=== PATIENT | female | born 1965 | race Caucasian/White ===

== ENCOUNTER 2016-05-24 08:15 | Emergency (ER) ==
[2016-05-24 08:25] VITALS: BP 140/91; TEMP 98; BMI 35.9
[2016-05-24] MEDS ORDERED: BOOSTRIX IM ONE (08:39)
--- NOTE | 2016-05-24 08:39 | ED.PDOC ---
General ED Provider: Dr. PETE LLANOS JR Chief Complaint: Hand Pain/Injury Stated Complaint: states yesterday was outdoors --dog(black lab) pulled her to the ground--rt forefinger was painful around nailbed--states woke up this am with finger throbbing--has redness to cuticle and end of finger-she punctured it and had pus from it[End]complains of throbbing in to axilla(along arm) without redness states feels a gland in axilla "I really need something for the pain "98.0 68 20 97% 140/91 610 rt finger injury[End]states pain radiates into forearm[End] Time Seen by Physician: 08:39 Mode of Arrival: Walk-In Information Source: Patient Exam Limitations: No limitations [facility] Nursing and Triage Documentation Reviewed and Agree: No Review of Systems - Review Of Systems Constitutional: Reports: Malaise Eyes: Reports: No symptoms Ears, Nose, Mouth, Throat: Reports: No symptoms Respiratory: Reports: No symptoms Cardiac: Reports: No symptoms GI: Reports: No symptoms : Reports: No symptoms Musculoskeletal: Reports: Joint pain (right first finger), Joint swelling, Other Skin: Reports: Lesions, Lumps (note deformity of fourth finger(I got that cut off when I was a baby)) Neurological: Reports: Anxiety, Headache Endocrine: Reports: No symptoms Hematologic/Lymphatic: Reports: No symptoms All Other Systems: Other Past Medical History - Past Medical History Endocrine: Reports: Other Cardiovascular: Reports: None Respiratory: Reports: None Hematological: Reports: None Gastrointestinal: Reports: Other Genitourinary: Reports: None Neuro/Psych: Reports: None Musculoskeletal: Reports: None Cancer: Reports: None Last Menstrual Period: hysterectomy Other Pertinent Past Medical History: hypoglycemia--ibs hysterectomy - Surgical History General Surgical History: Reports: Hysterectomy - Family History Family History: Reports: Unknown - Social History Smoking Status: Current some day smoker Hx Substance Use: No Alcohol Screening: None - Immunizations Tetanus Shot up to Date: No Physical Exam - Physical Exam Appearance: Well-appearing Pain Distress: Mild Neck: Supple Respiratory: Airway patent Cardiovascular: RRR Skin: Warm, Dry (note lesion right index finger, healed abrasions times three, tender radial nailfold no discharge ) Neurological: Sensation intact, Motor intact, Reflexes intact, Cranial nerves intact, Alert, Oriented Psychiatric: Anxious Critical Care Note - Critical Care Note Total Time (mins): 0 Course - Course Orders, Labs, Meds: Orders Category Date Time Status Diphth,Pertuss(Acell),Tet Vac [Boostrix] MEDS 05/24/16 08:39 Discontinued 0.5 ml IM .ONCE ONE Medications Discontinued Medications Generic Name Dose Route Start Last Admin Trade Name Freq PRN Reason Stop Dose Admin Diphtheria/Pertussis/Tetanus Vacc 0.5 ml 05/24/16 08:39 Boostrix IM 05/24/16 08:40 .ONCE ONE Vital Signs: Temp Pulse Resp BP Pulse Ox 05/24/16 08:16 98 F 68 20 140/91 H 97 Departure - Departure Time of Disposition: 08:53 Disposition: HOME SELF-CARE Discharge Problem: Felon of finger of right hand Instructions: Cellulitis (ED) Condition: Good Pt referred to PMD for follow-up: Yes Additional Instructions: may follow with PMD or may follow with [facility] Please call your Family Physician as soon as possible to schedule a follow-up appointment. antibiotic for infection Naprosyn for pain elevate hand 2 hours twice a day(above level of heart) warm soaks 10 minutes three to five times a day recheck one week sooner if not resolved Prescriptions: Naproxen [Naprosyn] 500 mg PO Q12HR PRN #30 tablet PRN Reason: PAIN Clindamycin HCl 300 mg PO QID #40 capsule Allergies/Adverse Reactions: Allergies Penicillins Allergy (Severe, Verified 05/24/16 08:29) Hives Patient notified to buy medical alert necklace hydrocodone [From Vicodin] Adverse Reaction (Verified 05/24/16 08:29) contrast dyee Allergy (Severe, Uncoded 05/02/16 15:39) Perspiring, problems breathing Home Medications: Ambulatory Orders Ibuprofen 800 mg PO PRN 05/02/16 Clindamycin HCl 300 mg PO QID #40 capsule 05/24/16 Naproxen [Naprosyn] 500 mg PO Q12HR PRN #30 tablet 05/24/16
== END 2016-05-24 09:17 | disposition home or self-care (01) ==
LOC: ED 08:15
DX: L03.011 Cellulitis of right finger (principal); S69.81XA Other specified injuries of right wrist, hand and finger(s), initial encounter; W54.0XXA Bitten by dog, initial encounter
CPT/HCPCS: 90471; 99282

== ENCOUNTER 2016-05-27 15:53 | Outpatient (CLI) ==
--- NOTE | 2016-05-27 17:07 | DI ---
Exam: Lumbar spine five views complete History: Low back pain Findings: Full length AP, lateral, both oblique views as well as a spot lateral view of the lumbosa cral angle were obtained. There is a large amount of gas and fecal material which obscures detail o n the AP and both oblique projections in particular. There appear to be five non-rib bearing, non s acralized lumbar vertebrae. Alignment appeared satisfactory in each projection. Minimal amount of multilevel endplate spurring noted. Heights of the lumbar vertebrae and associated disc spaces thou ght to be adequately maintained. Impression: Minimal endplate spurring noted without evidence of fracture, malalignment nor signific ant lumbar spine compression deformity.
--- NOTE | 2016-05-27 17:08 | DI ---
Exam: Left ribs four views History: Thoracic spine pain Findings: Full length AP and oblique views of the left ribs with spot AP and oblique views of the l eft lower ribs obtained and shows no evidence of lucent line concerning for a recent fracture. Ther e is no evidence of callus formation to suggest an actively healing fracture. No evidence of pathol ogic bony production or destruction is identified. Impression: No evidence of recent or early healing left-sided rib fracture. It is of note the elev enth and twelfth ribs are somewhat obscured by the amount of gas seen within the colon within the le ft upper quadrant region.
== END 2016-05-27 15:54 | disposition home or self-care (01) ==
LOC: RAD 15:53
PROVIDERS: ATTEND Nurse Practitioner Family
DX: M54.6 Pain in thoracic spine (principal); M54.5 Low back pain

== ENCOUNTER 2016-07-11 16:28 | Outpatient (CLI) ==
[2016-07-11 17:39] LABS: FLU INTERNAL QC INTERNAL QC VALID; RAPID FLU A NEGATIVE (NEGATIVE); RAPID FLU B NEGATIVE (NEGATIVE)
== END 2016-07-11 16:29 | disposition home or self-care (01) ==
LOC: LAB 16:28
PROVIDERS: ATTEND Nurse Practitioner Family
DX: J01.90 Acute sinusitis, unspecified (principal); J03.90 Acute tonsillitis, unspecified
CPT/HCPCS: 87651; 87804; 87880

== ENCOUNTER 2016-07-19 16:02 | Outpatient (CLI) ==
[2016-07-19 16:50] LABS: BASOPHILS # (AUTO) 0.1 K/uL (0-0.2); BASOPHILS % (AUTO) 0.7 % (0.0-3.0); EOSINOPHILS # (AUTO) 0.2 K/ul (0.0-0.7); EOSINOPHILS % (AUTO) 2.4 % (0.0-7.0); HEMATOCRIT 41.6 % (37.0-47.0); HEMOGLOBIN 14.1 g/dl (12.0-16.0); IMMATURE GRANULOCYTE % (AUTO) 0.3 % (0.0-5.0); LYMPHOCYTES # (AUTO) 1.9 K/uL (0.60-3.4); LYMPHOCYTES % (AUTO) 25.7 (10.0-50.0); MEAN CORPUSCULAR HEMOGLOBIN 30.1 pg (27.0-31.0); MEAN CORPUSCULAR HGB CONC 33.9 (31.8-35.4); MEAN CORPUSCULAR VOLUME 88.9 fl (81.0-99.0); MONOCYTES # (AUTO) 0.4 K/uL (0.4-2.0); MONOCYTES % (AUTO) 5.6 (0-10); NEUTROPHILS # (AUTO) 4.8 K/ul (2.0-6.9); NEUTROPHILS % (AUTO) 65.3; PLATELET COUNT 228 10^3/uL (140-440); RED BLOOD COUNT 4.68 10^6/ul (4.20-5.40); WHITE BLOOD COUNT 7.36 K/ul (4.6-10.2)
[2016-07-19 17:09] LABS: ALBUMIN 3.7 g/dL (3.4-5.0); ALBUMIN/GLOBULIN RATIO 0.97; ANION GAP 13.3; BILIRUBIN,TOTAL 0.25 mg/dL (0.00-1.20); BUN/CREATININE RATIO 17.04; CALCIUM 9.3 mg/dL (8.2-10.2); CHOL/HDL RATIO 4.5 (4.5-5.5); CREATININE 0.88 mg/dL (0.60-1.30); POTASSIUM 3.3 mmol/L (3.5-5.10); TOTAL PROTEIN 7.5 g/dL (6.4-8.2)
== END 2016-07-19 16:03 | disposition home or self-care (01) ==
LOC: LAB 16:02
PROVIDERS: ATTEND Nurse Practitioner Family
DX: R19.7 Diarrhea, unspecified (principal); E66.9 Obesity, unspecified
CPT/HCPCS: 36415; 80053; 80061; 84439; 84443; 85025

== ENCOUNTER 2016-08-25 08:35 | Outpatient (CLI) | END 2016-08-25 08:36 | disposition home or self-care (01) | LOC: LAB 08:35 | PROVIDERS: ATTEND Nurse Practitioner Family | DX: R05 Cough (principal); J02.9 Acute pharyngitis, unspecified | CPT/HCPCS: 87651; 87880 ==